=== PATIENT | male | born 1955 | race Caucasian/White ===

== ENCOUNTER 2022-10-03 08:43 | Outpatient (CLI) | payer MEDICARE, BC, SELFPAY | END 2022-10-03 08:44 | disposition home or self-care (01) | PROVIDERS: PCP Family Medicine; Visit Provider Family Medicine | DX: Z00.00 Encounter for general adult medical examination without abnormal findings (principal); E78.5 Hyperlipidemia, unspecified; E66.01 Morbid (severe) obesity due to excess calories; R03.0 Elevated blood-pressure reading, without diagnosis of hypertension; K63.5 Polyp of colon; Z12.5 Encounter for screening for malignant neoplasm of prostate | CPT/HCPCS: 80053; 82043; 82306; 82570; 84153 ==

== ENCOUNTER 2023-01-07 12:50 | Outpatient (CLI) | payer MEDICARE, BC, SELFPAY | END 2023-01-07 12:51 | disposition home or self-care (01) | LOC: NFLDREF 01-08 20:07 | PROVIDERS: PCP Family Medicine; Referring Provider Family Medicine; Visit Provider Family Medicine | DX: E55.9 Vitamin D deficiency, unspecified (principal) | CPT/HCPCS: 82306 ==

== ENCOUNTER 2023-10-03 07:36 | Outpatient (CLI) | payer MEDICARE, BC, SELFPAY | END 2023-10-03 07:37 | disposition home or self-care (01) | LOC: NFLDREF 10-04 12:48 | PROVIDERS: PCP Physician Assistant Medical; Referring Provider Physician Assistant Medical; Visit Provider Physician Assistant Medical | DX: E78.5 Hyperlipidemia, unspecified (principal); I10 Essential (primary) hypertension; E55.9 Vitamin D deficiency, unspecified; N52.9 Male erectile dysfunction, unspecified; Z12.5 Encounter for screening for malignant neoplasm of prostate; Z13.29 Encounter for screening for other suspected endocrine disorder | CPT/HCPCS: 80053; 80061; 82306; 84443; G0103 ==

== ENCOUNTER 2024-11-10 08:08 | Outpatient (CLI) | payer MEDICARE, BC, SELFPAY | END 2024-11-10 08:09 | disposition home or self-care (01) | LOC: NFLDREF 11-16 17:25 | PROVIDERS: PCP Physician Assistant Medical; Referring Provider Physician Assistant Medical; Visit Provider Physician Assistant Medical | DX: I10 Essential (primary) hypertension (principal); R97.20 Elevated prostate specific antigen [PSA]; E55.9 Vitamin D deficiency, unspecified; E78.2 Mixed hyperlipidemia; G25.81 Restless legs syndrome; C44.320 Squamous cell carcinoma of skin of unspecified parts of face; Z96.641 Presence of right artificial hip joint; Z96.642 Presence of left artificial hip joint; Z12.5 Encounter for screening for malignant neoplasm of prostate | CPT/HCPCS: 80053; 80061; 82306; 82728; 84443; G0103 ==